=== PATIENT | male | born 1945 | race Caucasian/White ===

== ENCOUNTER 2018-07-24 10:42 | Observation (INO) | payer BC, MEDICARE ==
[~2018-07-24] VITALS: Ht 185.4 cm; Wt 102.1 kg
[~2018-07-24 10:42] MED LIST: DILTIAZEM ER360 MG PO; DORZOLAMIDE-TIM10 ML OU; LISINOPRIL40 MG PO; PROAIR HFA INH8.5 GM PO; SIMVASTATIN10 MG PO; TERAZOSIN HCL10 MG PO
[2018-07-24] MEDS ORDERED: VERAPAMIL HCL120 MG PO (11:00)
[2018-07-24] MEDS ORDERED: GABAPENTIN300 MG PO (11:00)
[2018-07-24] MEDS ORDERED: ANORO IH (11:00)
--- NOTE | 2018-07-24 11:45 | Diagnostic Imaging Report ---
EXAMINATION: Head CT HISTORY: Syncope, fall, trauma, pain COMPARISON: None. TECHNIQUE: Multidetector axial images were obtained without contrast from the foramen magnum to the vertex . The images were reconstructed using brain and bone algorithms. Thin section brain images were reformatted into coronal and sagittal planes. Image quality: Motion/streaking artifact limits the evaluation of the skull base and posterior cranial fossa. Dose modulation, iterative reconstruction, and/or weight based adjustment of the mA/kV was utilized to reduce the radiation dose to as low as reasonably achievable. FINDINGS: Parenchyma: 1. No abnormal densities. 2. No mass or hemorrhage. No CT evidence of acute territorial vascular insult. Extra-axial spaces:No abnormal density. No extra-axial fluid collections Brain volume: Normal for age. Ventricles: No hydrocephalus or displacement. Arteries: No density suggestive of thrombus. Dural sinuses: No abnormal density. Extra-axial spaces: No abnormal density. Foramen magnum: No mass, Chiari malformation, or basilar invagination. Sella: No obvious mass. Paranasal/mastoid sinuses: Imaged portions unremarkable. Skull/Scalp: No lytic or blastic lesions. No fractures. IMPRESSION: No intracranial abnormalities, particularly no hemorrhage. Signed by: Dr. Dasha Cordova M.D. on 07/24/2018 11:42 AM
--- NOTE | 2018-07-24 11:46 | Diagnostic Imaging Report ---
EXAM: XR CHEST 1 VIEWS DATE: 07/24/2018 10:45 AM INDICATION: Syncope COMPARISON: 01/22/2013 FINDINGS: Lines and Tubes: None Heart and Mediastinum: No acute cardiomediastinal findings. Aortic vascular calcifications. Lungs and Pleura: No significant pleural effusion, pneumothorax, or focal consolidation. Minimal opacities in the lung bases statistically represent atelectasis, however, infectious process could have a similar appearance. Bones and Soft Tissues: No acute findings. IMPRESSION: 1. No acute cardiopulmonary findings. Signed by: Dr. Cosme Auguste MD on 07/24/2018 11:43 AM
[2018-07-24 12:15] LABS: BASOPHILS % 0.3 % (0.0-1.0); EOSINOPHILS # (AUTO) 0.1 (0.0-0.4); EOSINOPHILS % 1.1 % (0.0-6.0); HEMATOCRIT 36.8 % (38.2-49.6); HEMOGLOBIN 12.3 g/dL (14.0-18.0); LYMPHOCYTES # (AUTO) 1.1 (1.0-3.2); LYMPHOCYTES % 10.2 % (18.0-39.1); MEAN CORPUSCULAR HEMOGLOBIN 31.6 pg (28-32); MEAN CORPUSCULAR HGB CONC 33.4 g/dL (31-35); MEAN CORPUSCULAR VOLUME 94.6 fL (81-99); MONOCYTES # (AUTO) 0.6 (0.2-0.8); MONOCYTES % 5.3 % (4.4-11.3); NEUTROPHILS # (AUTO) 9.2 (2.1-6.9); NEUTROPHILS % 82.7 % (38.7-80.0); PLATELET COUNT 307 x10e3/uL (140-360); RED BLOOD COUNT 3.89 x10e6/uL (4.3-5.7); RED CELL DISTRIBUTION WIDTH 12.6 % (11.7-14.4)
[2018-07-24 12:28] LABS: INR 0.95; PARTIAL THROMBOPLASTIN TIME 33.2 seconds (23.8-35.5); PROTHROMBIN TIME 13.6 seconds (11.9-14.5)
[2018-07-24 12:35] LABS: ALANINE AMINOTRANSFERASE 12 IU/L (0-55); ALBUMIN/GLOBULIN RATIO 1.3 (0.8-2.0); ALKALINE PHOSPHATASE 42 IU/L (40-150); BLOOD UREA NITROGEN 14 mg/dL (7-26); BUN/CREATININE RATIO 13 (6-25); CALCIUM 9.1 mg/dL (8.4-10.2); CARBON DIOXIDE 22 mmol/L (22-29); CHLORIDE 100 mmol/L (98-107); CREATININE, SERUM 1.08 mg/dL (0.72-1.25); EST GLOMERULAR FILTRATION RATE > 60 ML/MIN (60-); GLUCOSE 111 mg/dL (74-118); SODIUM 133 mmol/L (136-145)
[2018-07-24 13:02] LABS: CREATINE KINASE 91 IU/L (30-200)
[2018-07-24 13:21] LABS: CLARITY,URINE CLEAR (CLEAR); COLOR,URINE YELLOW (YELLOW); KETONES,URINE NEGATIVE (NEGATIVE); LEUKOCYTE ESTERASE ,URINE NEGATIVE (NEGATIVE); NITRITE,URINE NEGATIVE (NEGATIVE); PROTEIN,URINE DIPSTICK NEGATIVE (NEGATIVE)
[2018-07-24 13:22] LABS: BILIRUBIN,URINE NEGATIVE (NEGATIVE); URINE UROBILINOGEN 0.2 mg/dL (0.2 - 1)
[2018-07-24] MEDS ORDERED: MORPHINE SULFATE 2 MG/ML SYR IV PRN (14:30)
[2018-07-24] MEDS ORDERED: ONDANSETRON HCL INJ 2 MG/ML VIAL IV PRN (14:30)
[2018-07-24] MEDS ORDERED: SODIUM CHLORIDE FLUSH 10 ML SYR INJ PRN (14:30)
[2018-07-24] MEDS ORDERED: ASPIRIN 81 MG CHEW TAB PO ONE (14:30)
--- OUTSIDE RECORDS SUMMARY | 2018-07-24 14:46 | XMS REPORT ---
Author Author [facility] Address Unknown Phone Unavailable Care Team Providers Care Professor Of Psychology Name Role Phone Maynor REYNOSO Unavailable Unavailable Problems This patient has no known problems. Allergies, Adverse Reactions, Alerts This patient has no known allergies or adverse reactions. Medications This patient has no known medications. Results Test Description Test Time Test Comments Text Results Atomic Results Result Comments CHEST SINGLE (PORTABLE) 2018-07-24 11:43:00 [place] [address] Patient Name: YNES ARREOLA MR #: [id number] : 1945 Age/Sex: 72/M Req #: [id number] Adm Physician: Ordered by: HAROON LEVY [employer] Report #: [id number] Location: ER Room/Bed: Procedure: [id number] DX/CHEST SINGLE (PORTABLE) Exam Date: 07/24/18 Exam Time: 1125 REPORT STATUS: Signed EXAM: XR CHEST 1 VIEWS DATE: 07/24/2018 10:45 AM INDICATION: Syncope COMPARISON: 01/22/2013 FINDINGS: Lines and Tubes: None Heart and Mediastinum: No acute cardiomediastinal findings. Aortic vascular calcifications. Lungs and Pleura: No significant pleural effusion, pneumothorax, or focal consolidation. Minimal opacities in the lung bases statistically represent atelectasis, however, infectious process could h ave a similar appearance. Bones and Soft Tissues: No acute findings. IMPRESSION: 1. No acute cardiopulmonary findings. Signed by: Dr. Elmer Auguste MD on 07/24/2018 11:43 AM Dictated By: ELMER AUGUSTE MD 114 Transcribed By: NADINE on 07/24/18 1143 COPY TO: HAROON LEVY NP CT BRAIN WO 2018-07-24 11:33:00 [place] [address] Patient Name: YNES ARREOLA MR #: [id number] : 1945 Age/Sex: 72/M Req #: [id number] Adm Physician: Ordered by: HAROON LEVY NP Report #: [id number] Location: ER Room/Bed: Procedure: [id number] CT/CT BRAIN WO Exam Date: Exam Time: REPORT STATUS: Signed EXAMINATION: Head CT HISTORY: Syncope, fall, trauma, pain COMPARISON: None. TECHNIQUE: Multidetector axial images were obtained without contrast from the foramen magnum to the vertex . The images were reconstructed using brain and bone algorithms. Thin section brain images were reformatted into coronal and sagittal planes. Image quality: Motion/streaking artifact limits the evaluation of the skull base and posterior cranial fossa. Dose modulation, iterative reconstruction, and/or weight based adjustment of the mA/kV was utilized to reduce the radiation dose to as low as reasonably achievable. FINDINGS: Parenchyma: 1. No abnormal densities. 2. No mass or hemorrhage. No CT evidence of acute territorial vascular insult. Extra-axial spaces:No abnormal density. No extra-axial fluid collections Brain volume: Normal for age. Ventricles: No hydrocephalus or displacement. Arteries: No density suggestive of thrombus. Dural sinuses: No abnormal density. Extra-axial spaces: No abnormal density. Foramen magnum: No mass, Chiari malformation, or basilar invagination. Sella: No obvious mass. Paranasal/mastoid sinuses: Imaged portions unremarkable. Skull/Scalp: No lytic or blastic lesions. No fractures. IMPRESSION: No intracranial abnormalities, particularly no hemorrhage. Signed by: Dr. Jenniffer Cordova M.D. on 07/24/2018 11:42 AM Dictated By: JENNIFFER CORDOVA MD 114 Transcribed By: NADINE on 07/24/18 114 COPY TO: HAROON LEVY NP
[2018-07-24 15:27] VITALS: BP 139/54
[2018-07-24 16:26] VITALS: BP 151/66
--- NOTE | 2018-07-24 18:26 | Consultation ---
DATE OF CONSULTATION: July 24, 2018 He is in the emergency room. ATTENDING PHYSICIAN: Dr. Zacarias Noland. Thank you so much for asking me to see this nice man again in consultation. Mr. Herrera is a pleasant, 72-year-old man known to me for many years who is sent to the emergency room today from the wound care clinic where he passed out while visiting with his and care team. HISTORY OF PRESENT ILLNESS: The patient tells me that his had surgery about a week ago and has been wearing a wound VAC. When he went to the office with her today, they were removing the wound VAC and teaching him to do wound care when he felt hot and sweaty and slumped to the floor. He denies chest pain or palpitations. PAST MEDICAL HISTORY: Significant for long-standing hypertension, lung disease with long time smoking, hyperlipidemia. He had myocardial infarction on April 01, 2010, treated with acute stenting. HOME MEDICATIONS: Include: 1. Aspirin 81 mg daily. 2. Terazosin 10 mg daily. 3. Simvastatin 20 mg daily. 4. Lisinopril 40 mg twice a day. 5. Timolol eye drops. 6. Verapamil ER 120 mg daily. 7. Gabapentin. 8. Anoro Ellipta. 9. Triamterene and hydrochlorothiazide. PERSONAL AND SOCIAL HISTORY: He stopped smoking in 2007. REVIEW OF SYSTEMS: He had cardiovascular re-evaluation in May of this year with echo showing EF 70% and arterial Doppler scan of the legs suggesting mild plaquing without severe stenosis. PHYSICAL EXAMINATION GENERAL: Exam at this time shows a pleasant, elderly, white man who is alert, responsive and comfortable. VITALS: Blood pressure 140/70. Pulse is 70 and regular. HEENT: Unremarkable. NECK: No jugular venous distention. No bruits. THORAX: Heart sounds S1 and S2 are equal. No murmurs. LUNGS: Clear. ABDOMEN: Protuberant. EXTREMITIES: No cyanosis, clubbing or edema. EKG shows sinus rhythm with right bundle branch block. LABORATORY STUDIES: Remarkable primarily for white count of 11.2 thousand. Other labs are unremarkable. Troponins normal. ASSESSMENT 1. "Swoon." Noncardiac syncope. Probably situational. 2. Hypertension. 3. Hyperlipidemia. 4. Coronary disease without clinical symptoms. PLAN: Will monitor him with you. Thank you for asking me to see him in consultation. Job#: [id number] MH
[2018-07-24 20:00] VITALS: BP 157/57
[2018-07-24 20:25] VITALS: BP 157/57
[2018-07-24 21:53] LABS: CREATINE KINASE 98 IU/L (30-200)
--- NOTE | 2018-07-25 06:21 | Diagnostic Imaging Report ---
CHEST SINGLE (PORTABLE), 07/25/2018 7:00 AM Technique: CHEST SINGLE (PORTABLE) Comparison: 07/24/2018 Clinical history: Syncope Findings: Unremarkable/stable appearance of the heart, mediastinum, lungs and pleural spaces. Impression: 1. Lines/Tubes: None 2. No acute abnormality. Signed by: Dr Mikayla Cervantes MD on 07/25/2018 6:18 AM
[2018-07-25 06:59] LABS: CHOL/HDL RATIO 2.2 (3.9-4.7)
[2018-07-25 07:10] VITALS: BP 163/70
[2018-07-25 08:17] VITALS: BP 163/70
[2018-07-25] MEDS ORDERED: ASPIRIN 81 MG ENTERIC COATED PO SCH (09:00)
[2018-07-25 11:49] VITALS: BP 166/80
[2018-07-25 11:55] VITALS: BP 158/66
[2018-07-25] MEDS ORDERED: LISINOPRIL 20 MG TAB PO SCH (17:00)
[2018-07-25] MEDS ORDERED: NON-FORMULARY MEDICATION (Lisinopril 40 MG) PO SCH (17:00)
[2018-07-25] MEDS ORDERED: GABAPENTIN 300 MG CAP PO SCH (17:00)
[2018-07-25] MEDS ORDERED: SIMVASTATIN 20 MG TAB PO SCH (21:00)
[2018-07-26] MEDS ORDERED: DILTIAZEM HCL 360 MG PO SCH (09:00)
[2018-07-26] MEDS ORDERED: TERAZOSIN HCL 5 MG CAP PO SCH (09:00)
[2018-07-26] MEDS ORDERED: DILTIAZEM HCL 180 MG CAP ER PO SCH (09:00)
[2018-07-26] MEDS ORDERED: TERAZOSIN HCL 10 MG PO SCH (09:00)
[2018-07-26] MEDS ORDERED: NON-FORMULARY MEDICATION (Simvastatin 10 MG) PO SCH (09:00)
--- NOTE | 2018-09-12 01:09 | Discharge Summary ---
CHIEF COMPLAINT: Syncopal episode. FINAL DIAGNOSES 1. Status post syncope. 2. Hypertension. DISPOSITION: Home. HOSPITAL COURSE: A 72-year-old male with known history of coronary artery disease, hypertension, hyperlipidemia, and glaucoma, brought to the ER after having a syncopal episode. He states that while he was waiting for his at the wound clinic, began feeling warm and sweaty. Sat down on his 's walker then apparently lost consciousness, found himself on the floor. He has had no similar episodes in the past. He was having no chest pain, shortness of breath or palpitations. There was no nausea or vomiting. Presented to the ER where he was evaluated. Further monitoring and care was given. The patient was admitted to facility for evaluation regarding status post syncope, etiology uncertain, possible vasovagal; hypertension; coronary artery disease; hyperlipidemia. Will be on observation and be monitoring the patient's heart rate and rhythm. Will be continuing on the patient's home medications. Will request cardiology followup. With observation, the patient was on a cardiac diet. Was being reviewed by cardiology through Dr. Meeks and his findings were that telemetry reveals sinus rhythm. His recent outpatient studies and evaluation were good. Feels that this issue was due to vasovagal syncope. Cardiac status is stable. BP is noted to be a little bit high, but he has not had his home medications yet. Recommending he is okay to monitor as an outpatient. He was receiving aspirin and morphine for pain control. On IV fluids. Laboratory studies were showing potassium borderline at 5. Kidney functions--BUN 14, creatinine 1.08, glucose 111. CBC--hemoglobin 12.3, white cell count [id number]. His observation was uneventful. Studies were unremarkable. He was cleared for release. Discharged on 07/25/2018 in stable condition. EKGs are showing sinus bradycardia with a right bundle branch block. He was given pamphlets regarding syncope and pain. He will continue his current diet. No drain or Mccray was needed. No equipment or supplies were necessary. Following back up with his PCP within 7 to 10 days. No new medications were written. He will continue on his daily medications, on diltiazem ER 360 daily, continue on his daily eyedrops each eye twice a day, gabapentin 300 mg twice a day, lisinopril 40 mg twice a day, simvastatin 10 mg daily, terazosin 10 mg daily, verapamil 120 twice a day. If he has any recurrence of these symptoms, he will be contacting his PCP immediately. Dictated By: MAXIMINO Carrero. Job#: [id number] ZAIRA
== END 2018-07-25 12:35 | disposition home or self-care (01) ==
LOC: ER 10:42 → ERHOLD 14:22 → MED/SURG2 16:21
DX: R55 Syncope and collapse (principal); I25.10 Atherosclerotic heart disease of native coronary artery without angina pectoris; I25.2 Old myocardial infarction; E78.5 Hyperlipidemia, unspecified; H40.9 Unspecified glaucoma; Z82.49 Family history of ischemic heart disease and other diseases of the circulatory system; Z95.5 Presence of coronary angioplasty implant and graft; I10 Essential (primary) hypertension; J98.4 Other disorders of lung; F17.210 Nicotine dependence, cigarettes, uncomplicated
CPT/HCPCS: 36415 ×2; 70450; 71045 ×2; 80053; 80061; 81001; 82550 ×2; 82553 ×2; 83605; 84484 ×2; 85025; 85610; 85730; 93005; 99284; G0378 ×2

== ENCOUNTER → 2020-10-23 | Outpatient (CLI) | payer MEDICARE ==
[~2020-10-23] MED LIST changes: +ANORO IH; +GABAPENTIN300 MG PO; +VERAPAMIL HCL120 MG PO
== END ==
LOC: RAD 11:37
PROVIDERS: ATTEND Internal Medicine Pulmonary Disease
DX: R06.02 Shortness of breath (principal)
CPT/HCPCS: 71046